=== PATIENT | male | born 1980 | race Caucasian/White ===

== ENCOUNTER 2024-05-08 06:06 | Day surgery (SDC) | payer OTHER, SELFPAY ==
[2024-05-08] VITALS (7 sets, daily range): BP systolic 142–149; BP diastolic 87–94; BMI 44.9
[2024-05-08] MEDS: TYLENOL 1000 MG PO (06:44)
[2024-05-08] MEDS: NORMOSOL-R/PLASMALYTE-A 1000 IV (07:03)
== END 2024-05-08 10:02 | disposition home or self-care (01) ==
LOC: SDS 06:06
PROVIDERS: ATTENDING PHYSICIAN Surgery; FAMILY PHYSICIAN Family Medicine
DX: K64.8 Other hemorrhoids (principal); K64.4 Residual hemorrhoidal skin tags
CPT/HCPCS: 46255

== ENCOUNTER → 2024-05-27 10:08 | Outpatient (REF) | payer OTHER, SELFPAY | LOC: CLAB 10:08 | PROVIDERS: ATTENDING PHYSICIAN Surgery | DX: Z11.51 Encounter for screening for human papillomavirus (HPV) (principal) | CPT/HCPCS: 87624; 88112 ==